=== PATIENT | female | born 1980 | race Caucasian/White ===

== ENCOUNTER 2021-12-25 10:47 | Emergency (ER) | payer MEDICAID ==
[~2021-12-25] VITALS: Ht 170.2 cm; Wt 86.2 kg
[2021-12-25 11:00] VITALS: BP_SYST 152
--- NOTE | 2021-12-25 11:00 | NUR ---
Patient to ER Tent 1 to gown for evaluation. Side rails up. Report given to Hina BUSH.
[2021-12-25] MEDS ORDERED: ACETAMINOPHEN 500 MG TABLET PO ONE (12:30)
--- NOTE | 2021-12-25 13:30 | NUR ---
NATY Odom at bedside examining patient.
[2021-12-25 14:08] VITALS: BP_SYST 138
--- NOTE | 2021-12-25 14:08 | NUR ---
Patient given written and verbal discharge instructions and verbalizes understanding. ER MD discussed with patient the results and treatment provided. Patient in stable condition. ID arm band removed. Patient educated on pain management and to follow up with PMD. Pain Scale 0/10. Opportunity for questions provided and answered. Medication side effect fact sheet provided.
== END 2021-12-25 14:08 | disposition home or self-care (01) ==
LOC: SED 10:47
DX: U07.1 COVID-19 (principal); J02.9 Acute pharyngitis, unspecified; R50.9 Fever, unspecified; R05.9 Cough, unspecified; E78.00 Pure hypercholesterolemia, unspecified; I10 Essential (primary) hypertension
CPT/HCPCS: 71045; 99283